=== PATIENT | female | born 1995 | race Caucasian/White ===

== ENCOUNTER 2017-03-12 01:46 | Emergency (ER) | payer OTHER ==
[~2017-03-12] VITALS: Ht 167.6 cm; Wt 66.2 kg
[2017-03-12 01:51] VITALS: TEMP 36.5; Ht 167.6 cm; Wt 66.2 kg
[2017-03-12] MEDS ORDERED: CLR10 PO (01:55)
[2017-03-12] MEDS ORDERED: BCPILLS PO (01:55)
[2017-03-12 02:06] VITALS: O2SAT 100
[2017-03-12 02:23] LABS: BUN/CREATININE RATIO 11.1 (10-20); CALCIUM 8.6 mg/dl (8.5-10.1); CREATININE 0.82 mg/dl (0.60-1.20); POTASSIUM 3.2 mmol/L (3.5-5.1)
[2017-03-12 02:58] LABS: PREG INTERNAL NEGATIVE QC NEG CLEAR BACKGROUND; PREG INTERNAL POSITIVE QC POS CONTROL LINE
--- NOTE | 2017-03-12 03:03 | EMERGENCY ROOM VISIT NOTE ---
History Report prepared by Vicky: Shayy Kay Under the Supervision of: Dr. Nancy Rubio D.O. First contact with patient: 01:47 Chief Complaint: ALCOHOL OVERDOSE Stated Complaint: ALCOHOL OVERDOSE History of Present Illness The patient is a 21 year old female who presents to the Emergency Room with complaints of an episode of alcohol overdose occurring tonight. Per EMS, the patient was found vomiting in the hallway of her dorm. They note that she states that she only drank beer and that she got a random bloody nose in the ambulance. Patient denies any history trauma. States that due to prior nasal and sinus surgery she frequently gets spontaneous nosebleeds. States it is since stopped. The patient states that she thinks she did not fall in her room. The patient denies nausea, back pain, and abdominal pain. HPI is limited secondary to alcohol intoxication. Source of History: patient History Limited By: intoxication Onset: tonight Position: other (global) Quality: other (global) Timing: other (episode) Associated Symptoms: + vomiting, No nausea, No abdominal pain, No back pain Review of Systems Pt denies headache, change in vision, fevers, chest pain, shortness of breath, nausea, vomiting, diarrhea, pain with urination, and melena. Past Medical & Surgical Medical Problems: (1) No Known Active Medical Problems Family History No pertinent family history Social History Alcohol Use: occasionally Marital Status: single Housing Status: lives with roommate Occupation Status: [employer] student Current/Historical Medications Scheduled Control Pills ( Control Pills), 1 TAB PO DAILY Loratadine (Claritin), 10 MG PO DAILY Allergies Coded Allergies: Penicillins (Verified Allergy, Unknown, UNKNOWN, 03/12/17) Physical Exam Vital Signs Date Time Temp Pulse Resp B/P (MAP) Pulse Ox O2 Delivery O2 Flow Rate FiO2 03/12/17 07:35 64 15 136/78 99 Room Air 03/12/17 05:20 72 14 94/43 98 Room Air 03/12/17 03:45 98 14 143/96 98 Room Air 03/12/17 02:17 101 03/12/17 02:06 100 Room Air 03/12/17 01:59 101 03/12/17 01:51 100 Room Air 03/12/17 01:51 36.5 100 18 143/96 100 Room Air Physical Exam GENERAL: alert, well appearing, well nourished, no distress, non-toxic, very tearful, coherent EYE EXAM: normal conjunctiva, PERRL and EOM's grossly intact OROPHARYNX: no exudate, no erythema, lips, buccal mucosa, and tongue normal and mucous membranes are moist NECK: supple, no nuchal rigidity, no adenopathy, non-tender, no evidence of trauma LUNGS: Clear to auscultation. Normal chest wall mechanics HEART: no murmurs, S1 normal and S2 normal ABDOMEN: abdomen soft, non-tender, normo-active bowel sounds, no masses, no rebound or guarding. No evidence of trauma. BACK: Back is symmetrical on inspection and there is no deformity, no midline tenderness, no CVA tenderness. SKIN: no rashes and no bruising UPPER EXTREMITIES: upper extremities are grossly normal. No evidence of trauma. No deformities. Normal pulses. LOWER EXTREMITIES: No pitting edema. No evidence of trauma. No deformities. Normal pulses. NEURO EXAM: Normal sensorium, cranial nerves II-XII grossly intact, normal speech, no gross weakness of arms, no gross weakness of legs. Medical Decision & Procedures Laboratory Results 03/12/17 01:50 Test 03/12/17 01:50 Anion Gap 9.0 mmol/L (3-11) Est Creatinine Clear Calc Drug Dose 103.2 ml/min Estimated GFR () 120.2 Estimated GFR (Non- 103.7 BUN/Creatinine Ratio 11.1 (10-20) Calcium Level 8.6 mg/dl (8.5-10.1) Human Chorionic Gonadotropin, Qual NEG (NEG) Ethyl Alcohol mg/dL 238.0 mg/dl (0-3) Laboratory results per my review. ED Course 0148: The patient was evaluated in room C6. A complete history and physical exam was performed. 0745: Upon reevaluation, the patient is feeling better. Patient states she remembers returning back to her dorm room, but could not find her crocker to go into her room. Patient states while sitting the hallway, her RA came up to her and was concerned that she spell of alcohol and cannot get under her dorm room. Patient denies any trauma or injury. States that she feels fine at this time , no pain, no nausea, no headache. I discussed the findings and the treatment plan with the patient. She verbalizes agreement and understanding. The patient was discharged home. Medical Decision Etiologies such as alcohol intoxication, toxicologic, infection, hypoglycemia, electrolyte abnormalities, cardiac sources, intracerebral event, neurologic, as well as others were entertained. Patient initially awake and talking, that I trauma, no physical evidence of trauma, however clinically intoxicated. Upon reexam patient's sober, and related with a steady gait, had already gotten dressed and was asking to be discharged. I've a low clinical suspicion for any additional culture medic injury. Discussed all of patient's labs with her. Vital signs stable throughout, patient tolerating by mouth at bedside prior to discharge. Discussed symptoms to watch and return for, treatment of hypokalemia, she verbalized understanding was agreeable with plan. Medication Reconcilliation Current Medication List: was personally reviewed by me Blood Pressure Screening Patient's blood pressure: Normal blood pressure Impression Primary Impression: Alcoholic intoxication Additional Impression: Hypokalemia Scribe Attestation The scribe's documentation has been prepared under my direction and personally reviewed by me in its entirety. I confirm that the note above accurately reflects all work, treatment, procedures, and medical decision making performed by me. Departure Information Dispostion Home / Self-Care Forms HOME CARE DOCUMENTATION FORM, IMPORTANT VISIT INFORMATION Patient Instructions [facility] Additional Instructions Please do not drink alcohol until you're 21. If you choose to drink, please drink responsibly and in a safe location. Do not drink and drive. Please note the potassium level was mildly low tonight. Please make sure that your regularly incorporating potassium-rich foods in your diet including bananas, orange juice, or coconut water. If you have any new or concerning symptoms, please return to emergency room. Problem Qualifiers Primary Impression: Alcoholic intoxication Complication of substance-induced condition: uncomplicated Qualified Codes: F10.920 - Alcohol use, unspecified with intoxication, uncomplicated
[2017-03-12 07:35] VITALS: BP 136/78; PULSE 64; O2SAT 99
== END 2017-03-12 07:58 | disposition home or self-care (01) ==
LOC: EDBD 01:46 → C.EDC 01:48
DX: F10.920 Alcohol use, unspecified with intoxication, uncomplicated (principal); E87.6 Hypokalemia; Y90.7 Blood alcohol level of 200-239 mg/100 ml